=== PATIENT | male | born 1975 | race Caucasian/White ===

== ENCOUNTER 2016-10-09 21:12 | Emergency (ER) | payer OTHER ==
[2016-10-09 22:12] VITALS: TEMP 98.3
[2016-10-09] MEDS ORDERED: SODIUM CHLORIDE 0.9% 500 ML IV STA (23:39)
--- NOTE | 2016-10-09 23:46 | ED ---
General Adult HPI - General Chief complaint: ENT Stated complaint: Sinus Problems/Dizziness Time Seen by Provider: 10/09/16 23:23 Source: patient, RN notes reviewed Mode of arrival: ambulatory - History of Present Illness Initial comments: This is a 41-year-old male who presents to the [facility] today for complaints of left ear pain. Patient states he's had an earache for 2 months and has noticed some drainage over the last couple of weeks. Patient denies any fever/chills. Patient does admit to some hearing loss in left ear. Patient also states he has a history of pulmonary embolism. Patient states this was diagnosed over a year ago. Patient states he was on blood thinners for one month but lost his insurance and quit taking his blood thinners. Patient states he never followed up for this. Patient states he's had intermittent sharp chest pain for the past 6 months. Patient denies any chest pain in the EC. Patient denies any shortness of breath. Patient states there is no correlation to physical activity and the chest pain occurs randomly. Patient denies any palpitations. Patient is also complaining of a lump that he can feel to the left side of his back. Patient states this has also been present for 6 months to a year. Patient has not noticed any swelling or redness to this area. Patient denies any recent fever, chills, shortness breath, abdominal pain, nausea/vomiting/ diarrhea, back pain, numbness, tingling, hematuria, headache, or visual changes , or any other complaints. - Related Data Previous Rx's Medication Instructions Recorded Ofloxacin [Floxin 0.3% Otic Soln] 10 drops LEFT EAR BID 14 Days 10/10/16 Allergies Allergy/AdvReac Type Severity Reaction Status Date / Time No Known Allergies Allergy Verified 10/09/16 23:29 Review of Systems ROS Statement: Those systems with pertinent positive or pertinent negative responses have been documented in the HPI. ROS Other: All systems not noted in ROS Statement are negative. Past Medical History Past Medical History: Asthma, Pulmonary Embolus (PE) History of Any Multi-Drug Resistant Organisms: None Reported Past Surgical History: Ear Surgery, Tonsillectomy Past Anesthesia/Blood Transfusion Reactions: No Reported Reaction Past Psychological History: No Psychological Hx Reported Smoking Status: Former smoker Past Alcohol Use History: None Reported Past Drug Use History: None Reported - Past Family History Father Family Medical History: Diabetes Mellitus, Hypertension Mother Family Medical History: Diabetes Mellitus, Hypertension General Exam - General Exam Comments Initial Comments: General: The patient is awake and alert, in no distress, and does not appear acutely ill. Eye: Pupils are equal, round and reactive to light, extra-ocular movements are intact. No nystagmus. There is normal conjunctiva bilaterally. No signs of icterus. Ears: Left: Tympanic membrane with perforation noted. No drainage noted. Tympanic membrane is slightly erythematous. Right: TMs pink and pearly with intact cone of light. Normal external ear canals Nose: Nasal turbinates pink and moist Mouth and throat: There are moist mucous membranes and no oral lesions. Neck: The neck is supple, there is no tenderness or JVD. Cardiovascular: There is no reproducible chest pain. There is a regular rate and rhythm. No murmur, rub or gallop is appreciated. Respiratory: Lungs are clear to auscultation, respirations are non-labored, breath sounds are equal. No wheezes, stridor, rales, or rhonchi. Gastrointestinal: Soft, non-distended, non-tender abdomen without masses or organomegaly noted. There is no rebound or guarding present. No CVA tenderness. Bowel sounds are unremarkable. Musculoskeletal: There is an approximately 1 cm palpable lump to the patient's lateral left-sided back. There is no erythema, tenderness, swelling or ecchymosis. Normal ROM, no tenderness. Strength 5/5. Sensation intact. Radial pulses equal bilaterally 2+. Neurological: A&O x 3. CN II-XII intact, There are no obvious motor or sensory deficits. Coordination appears grossly intact. Speech is normal. Skin: Skin is warm and dry and no rashes or lesions are noted. Psychiatric: Cooperative, appropriate mood & affect, normal judgment. Course Vital Signs 10/09/16 22:08 Temperature 98.3 F Pulse Rate 61 Respiratory 18 Rate Blood Pressure 144/84 O2 Sat by Pulse 99 Oximetry EKG Findings - EKG Comments: EKG Findings:: An EKG was done at 2352 showing Sinus bradycardia with a ventricular rate of 54, NM interval of 138, QRS duration of 98 QTc of 403. No acute ST changes. There was some concern for lead placement with this EKG so a repeat EKG was done. A repeat EKG was done at 019 showing sinus bradycardia. Ventricular rate of 53, NM interval 148, QRS duration of 96, QTc of 412. No acute ST changes. Medical Decision Making - Medical Decision Making This is a 41-year-old male who presents with multiple complaints. On physical exam Left: Tympanic membrane with perforation noted. No drainage noted. Tympanic membrane is slightly erythematous. Lungs are clear to auscultation bilaterally. Patient also complains of intermittent chest pain and has history of pulmonary embolism. Chest x-ray was done and reviewed showing: No acute disease. Report by Dr. Rankin. Basic labs were drawn and came back negative. An EKG was done at 2352 showing Sinus bradycardia with a ventricular rate of 54, NM interval of 138, QRS duration of 98 QTc of 403. No acute ST changes. There was some concern for lead placement with this EKG so a repeat EKG was done. A repeat EKG was done at 019 showing sinus bradycardia. Ventricular rate of 53, NM interval 148, QRS duration of 96, QTc of 412. No acute ST changes. I discussed results of labs, imaging and EKG with patient. I discussed that patient should follow-up with his primary care physician regarding these issues. Patient denies any history of clotting disorders or any specific reason that was determined to cause his PE in 2015. Due to patient's perforated left tympanic membrane patient will be placed on Floxin otic drops. I discussed Tylenol and Motrin for any pain. I discussed follow-up with ENT in 1-2 days regarding this problem. I discussed that patient should follow-up with his primary care provider regarding the lump to the left lateral side of his back. I discussed that there is no sign of infection or need for further investigation acutely. I discussed return parameters. All questions were answered. Discussed that patient should follow up with PCP in one to 2 days or return to the [facility] for any worsening symptoms or for any further concerns. Patient was receptive to this plan and patient will be discharged home. I discussed this case with attending physician Dr. Roche who agrees the plan as stated above. - Lab Data Result diagrams: 10/10/16 00:05 10/10/16 00:05 Lab Results 10/10/16 10/10/16 10/10/16 Range/Units 00:05 00:05 00:05 WBC 7.3 (3.8-10.6) k/uL RBC 5.59 (4.30-5.90) m/uL Hgb 15.4 (13.0-17.5) gm/dL Hct 45.7 (39.0-53.0) % MCV 81.8 (80.0-100.0) fL MCH 27.5 (25.0-35.0) pg MCHC 33.7 (31.0-37.0) g/dL RDW 14.1 (11.5-15.5) % Plt Count 161 (150-450) k/uL Neutrophils % 62 % Lymphocytes % 26 % Monocytes % 7 % Eosinophils % 2 % Basophils % 1 % Neutrophils # 4.6 (1.3-7.7) k/uL Lymphocytes # 1.9 (1.0-4.8) k/uL Monocytes # 0.5 (0-1.0) k/uL Eosinophils # 0.2 (0-0.7) k/uL Basophils # 0.1 (0-0.2) k/uL PT (9.0-12.0) sec INR (<1.1) APTT (22.0-30.0) sec D-Dimer (<0.60) mg/L FEU Sodium 142 (137-145) mmol/L Potassium 3.9 (3.5-5.1) mmol/L Chloride 104 (98-107) mmol/L Carbon Dioxide 26 (22-30) mmol/L Anion Gap 12 mmol/L BUN 15 (9-20) mg/dL Creatinine 0.90 (0.66-1.25) mg/dL Est GFR (MDRD) Af Amer >60 (>60 ml/min/1.73 sqM) Est GFR (MDRD) Non-Af >60 (>60 ml/min/1.73 sqM) Glucose 91 (74-99) mg/dL Calcium 9.6 (8.4-10.2) mg/dL Magnesium 1.8 (1.6-2.3) mg/dL Total Bilirubin 0.8 (0.2-1.3) mg/dL AST 20 (17-59) U/L ALT 39 (21-72) U/L Alkaline Phosphatase 48 (38-126) U/L Total Creatine Kinase 93 (55-170) U/L CK-MB (CK-2) 0.7 (0.0-2.4) ng/mL CK-MB (CK-2) Rel Index 0.8 Troponin I <0.012 (0.000-0.034) ng/mL Total Protein 7.0 (6.3-8.2) g/dL Albumin 4.3 (3.5-5.0) g/dL 10/10/16 Range/Units 00:05 WBC (3.8-10.6) k/uL RBC (4.30-5.90) m/uL Hgb (13.0-17.5) gm/dL Hct (39.0-53.0) % MCV (80.0-100.0) fL MCH (25.0-35.0) pg MCHC (31.0-37.0) g/dL RDW (11.5-15.5) % Plt Count (150-450) k/uL Neutrophils % % Lymphocytes % % Monocytes % % Eosinophils % % Basophils % % Neutrophils # (1.3-7.7) k/uL Lymphocytes # (1.0-4.8) k/uL Monocytes # (0-1.0) k/uL Eosinophils # (0-0.7) k/uL Basophils # (0-0.2) k/uL PT 10.8 (9.0-12.0) sec INR 1.1 (<1.1) APTT 24.9 (22.0-30.0) sec D-Dimer 0.36 (<0.60) mg/L FEU Sodium (137-145) mmol/L Potassium (3.5-5.1) mmol/L Chloride (98-107) mmol/L Carbon Dioxide (22-30) mmol/L Anion Gap mmol/L BUN (9-20) mg/dL Creatinine (0.66-1.25) mg/dL Est GFR (MDRD) Af Amer (>60 ml/min/1.73 sqM) Est GFR (MDRD) Non-Af (>60 ml/min/1.73 sqM) Glucose (74-99) mg/dL Calcium (8.4-10.2) mg/dL Magnesium (1.6-2.3) mg/dL Total Bilirubin (0.2-1.3) mg/dL AST (17-59) U/L ALT (21-72) U/L Alkaline Phosphatase (38-126) U/L Total Creatine Kinase (55-170) U/L CK-MB (CK-2) (0.0-2.4) ng/mL CK-MB (CK-2) Rel Index Troponin I (0.000-0.034) ng/mL Total Protein (6.3-8.2) g/dL Albumin (3.5-5.0) g/dL Disposition Clinical Impression: Perforated tympanic membrane Disposition: HOME SELF-CARE Condition: Good Instructions: Ruptured Eardrum (ED) Additional Instructions: Please use antibiotic eardrops as prescribed. Please use Tylenol and Motrin for any pain. Please follow-up with the primary care physician in the next 1-2 days or return to the [facility] for any worsening symptoms or for any further concerns. Prescriptions: Ofloxacin [Floxin 0.3% Otic Soln] 10 drops LEFT EAR BID 14 Days Referrals: None,Stated [Primary Care Provider] - 1-2 days Sean Johnson MD [STAFF PHYSICIAN] - 1-2 days Mauro Newell III, MD [STAFF PHYSICIAN] - 1-2 days Bertha James MD [STAFF PHYSICIAN] - 1-2 days Niranjan Thompson DO [Doctor of Osteopathic Medicine] - 1-2 days Time of Disposition: 01:13
--- NOTE | 2016-10-09 23:53 | XR ---
EXAM: XR Chest, 2 Views. CLINICAL HISTORY: Reason: Pain TECHNIQUE: Frontal and lateral views of the chest. COMPARISON: Chest radiograph on 01/27/2015 FINDINGS: Hardware: None. Lungs/pleura: Normal. No focal consolidation. No pleural effusion or pneumothorax. Heart/mediastinum: Normal. No cardiomegaly. Soft tissues: Unremarkable. Bones: No acute fracture. Upper abdomen: Normal. IMPRESSION: No acute disease.
[2016-10-10 00:20] LABS: Basophils # (A) 0.1 k/uL (0-0.2); Basophils % (A) 1 %; CH 27.8; Eosinophils # (A) 0.2 k/uL (0-0.7); Eosinophils % (A) 2 %; HCT 45.7 % (39.0-53.0); HDW 2.99; HGB 15.4 gm/dL (13.0-17.5); Luc # (Auto) 0.13; Luc % (Auto) 2; Lymphocytes # (A) 1.9 k/uL (1.0-4.8); Lymphocytes % (A) 26 %; MCH 27.5 pg (25.0-35.0); MCHC 33.7 g/dL (31.0-37.0); MCV 81.8 fL (80.0-100.0); Mean Platelet Volume 8.1; Monocytes # (A) 0.5 k/uL (0-1.0); Monocytes % (A) 7 %; Neutrophils # (A) 4.6 k/uL (1.3-7.7); Neutrophils % (A) 62 %; RBC 5.59 m/uL (4.30-5.90); RDW 14.1 % (11.5-15.5); WBC 7.3 k/uL (3.8-10.6); WBC (Perox) 7.18
[2016-10-10 00:28] LABS: ALT 39 U/L (21-72); AST 20 U/L (17-59); Alkaline Phosphatase 48 U/L (38-126); Anion Gap 12 mmol/L; Blood Urea Nitrogen 15 mg/dL (9-20); Calcium 9.6 mg/dL (8.4-10.2); Carbon Dioxide 26 mmol/L (22-30); Chloride 104 mmol/L (98-107); Glucose 91 mg/dL (74-99); Magnesium 1.8 mg/dL (1.6-2.3); Non-African American GFR(MDRD) >60 (>60 ml/min/1.73 sqM); Potassium 3.9 mmol/L (3.5-5.1); Sodium 142 mmol/L (137-145); Total Bilirubin 0.8 mg/dL (0.2-1.3)
[2016-10-10 00:35] LABS: INR 1.1 (<1.1); Partial Thromboplastin Time 24.9 sec (22.0-30.0); Prothrombin Time 10.8 sec (9.0-12.0)
[2016-10-10 00:37] LABS: Creatine Kinase 93 U/L (55-170)
[2016-10-10 00:50] LABS: Creatine Kinase MB 0.7 ng/mL (0.0-2.4); Troponin I <0.012 ng/mL (0.000-0.034)
[2016-10-10 01:25] VITALS: BP 127/67; PULSE 85; RESP 16
== END 2016-10-10 01:25 | disposition home or self-care (01) ==
LOC: EC 21:12
DX: S09.22XA Traumatic rupture of left ear drum, initial encounter (principal); R07.9 Chest pain, unspecified; H91.92 Unspecified hearing loss, left ear; Z86.711 Personal history of pulmonary embolism; Z87.891 Personal history of nicotine dependence; X58.XXXA Exposure to other specified factors, initial encounter
CPT/HCPCS: 36415; 71020; 80053; 82550; 82553; 83735; 84484; 85025; 85379; 85610; 85730; 93005; 99284

== ENCOUNTER 2017-01-05 17:51 | Emergency (ER) | payer OTHER ==
[2017-01-05 18:01] VITALS: BP 128/77; PULSE 87; RESP 20; TEMP 97.1
[2017-01-05] MEDS ORDERED: ORPHENADRINE 30 MG/ML 2 ML VIAL IM STA (18:11)
[2017-01-05] MEDS ORDERED: KETOROLAC 60 MG/2 ML VIAL IM STA (18:11)
--- NOTE | 2017-01-05 18:12 | ED ---
Back Pain HPI - General Chief Complaint: Back Pain/Injury Stated Complaint: lower back pain/left leg pain Time Seen by Provider: 01/05/17 18:03 Source: patient, RN notes reviewed, old records reviewed Limitations: physical limitation - History of Present Illness Initial Comments: This is a 41-year-old male presenting to the emergency Department chief complaint of lower back pain is reading on his left leg. Patient reports that this is Garrett for the past 3 days. Patient denies any difficulty with urination and bowel movements. Denies any saddle anesthesias. Patient states that the pain seems to radiate from the top of the buttock all the way down his leg. He states it's worse with full flexion and extension of the leg and hip. Patient has been been taking Motrin with little relief. Denies any previous injuries to cause this. States that he has a history of degenerative disc disease but does not know exactly what causes her what disc are worse.Patient denies any recent fever, chills, shortness of breath, chest pain, abdominal pain, nausea vomiting, numbness or tingling, dysuria or hematuria, constipation or diarrhea, headaches or visual changes, or any other current symptoms - Related Data Previous Rx's Medication Instructions Recorded Acetaminophen-Codeine 300-30mg 1 tab PO Q6H PRN #12 tablet 01/05/17 [Tylenol #3] Cyclobenzaprine [Flexeril] 10 mg PO TID #12 tab 01/05/17 Dexamethasone 0.75 mg PO DAILY #12 tab 01/05/17 Allergies Allergy/AdvReac Type Severity Reaction Status Date / Time No Known Allergies Allergy Verified 01/05/17 18:09 Review of Systems ROS Statement: Those systems with pertinent positive or pertinent negative responses have been documented in the HPI. ROS Other: All systems not noted in ROS Statement are negative. Past Medical History Past Medical History: Asthma, Pulmonary Embolus (PE) Additional Past Medical History / Comment(s): back pain History of Any Multi-Drug Resistant Organisms: None Reported Past Surgical History: Ear Surgery, Tonsillectomy Additional Past Surgical History / Comment(s): ear tubes Past Anesthesia/Blood Transfusion Reactions: No Reported Reaction Past Psychological History: No Psychological Hx Reported Smoking Status: Current every day smoker Past Alcohol Use History: None Reported Past Drug Use History: None Reported - Past Family History Father Family Medical History: Diabetes Mellitus, Hypertension Mother Family Medical History: Diabetes Mellitus, Hypertension General Exam - General Exam Comments Initial Comments: 41-year-old male. No distress. Limitations: physical limitation General appearance: alert, in no apparent distress Head exam: Present: atraumatic, normocephalic, normal inspection Eye exam: Present: normal appearance, PERRL, EOMI. Absent: scleral icterus, conjunctival injection, periorbital swelling ENT exam: Present: normal exam, mucous membranes moist Neck exam: Present: normal inspection. Absent: tenderness, meningismus, lymphadenopathy Respiratory exam: Present: normal lung sounds bilaterally. Absent: respiratory distress, wheezes, rales, rhonchi, stridor Cardiovascular Exam: Present: regular rate, normal rhythm, normal heart sounds. Absent: systolic murmur, diastolic murmur, rubs, gallop, clicks GI/Abdominal exam: Present: soft, normal bowel sounds. Absent: distended, tenderness, guarding, rebound, rigid Extremities exam: Present: normal inspection, full ROM, normal capillary refill. Absent: tenderness, pedal edema, joint swelling, calf tenderness Back exam: Present: normal inspection, other (Left paraspinal lumbar tenderness. Patient has positive straight leg test.) Neurological exam: Present: alert, oriented X3, CN II-XII intact Psychiatric exam: Present: normal affect, normal mood Skin exam: Present: warm, dry, intact, normal color. Absent: rash Course Vital Signs 01/05/17 17:59 Temperature 97.1 F L Pulse Rate 87 Respiratory 20 Rate Blood Pressure 128/77 O2 Sat by Pulse 99 Oximetry Medical Decision Making - Medical Decision Making This is a 41-year-old male presenting to the emergency Department chief complaint of lower back pain is reading on his left leg. Patient reports that this is occuring for the past 3 days. Patient denies any difficulty with urination and bowel movements. Denies any saddle anesthesias. Patient states that the pain seems to radiate from the top of the buttock all the way down his leg. He states it's worse with full flexion and extension of the leg and hip. Patient has been been taking Motrin with little relief. Denies any previous injuries to cause this. States that he has a history of degenerative disc disease but does not know exactly what causes her what disc are worse. Patient was given lumbar spine x-rays. Negative for any acute process. Patient given IM Toradol and Norflex. Patient reports that he is feeling better at this time. Patient be discharged with Tylenol codeine, Flexeril, and steroid pack. Discussed following up with a orthopedic or primary care physician. Patient agrees. Patient has history plan will comply. Return parameters were discussed. - Radiology Data Radiology results: report reviewed Disposition Clinical Impression: Left sciatic nerve pain Disposition: HOME SELF-CARE Condition: Good Instructions: Sciatica (ED), Acute Low Back Pain (ED), Lower Back Exercises (ED ) Additional Instructions: Patient advised taking medication as prescribed. Patient advised also apply heat and ice to the lower back. Also recommending massaging the area. Return to emergency department if any alarming signs or symptoms occur. Prescriptions: Acetaminophen-Codeine 300-30mg [Tylenol #3] 1 tab PO Q6H PRN #12 tablet PRN Reason: Pain Cyclobenzaprine [Flexeril] 10 mg PO TID #12 tab Dexamethasone 0.75 mg PO DAILY #12 tab Referrals: None,Stated [Primary Care Provider] - 1-2 days Bertha James MD [STAFF PHYSICIAN] - 1-2 days Time of Disposition: 18:49
--- NOTE | 2017-01-05 18:47 | XR ---
EXAMINATION TYPE: XR lumbar spine 2 or 3V DATE OF EXAM: 01/05/2017 CLINICAL HISTORY: pain TECHNIQUE: Three views of the lumbar spine are submitted. COMPARISON: None. FINDINGS: There are 5 lumbar type vertebral bodies identified. The lumbar spine shows satisfactory alignment w ithout evidence of acute fracture or dislocation. Vertebral body heights are within normal limits. Disc spaces are within normal limits. The overlying soft tissue appears unremarkable. IMPRESSION: No acute fracture or dislocation is seen in the lumbar spine. ICD 10 NO FRACTURE, INITIAL EVALUATION
== END 2017-01-05 19:05 | disposition home or self-care (01) ==
LOC: EC 17:51
DX: M54.32 Sciatica, left side (principal); F17.200 Nicotine dependence, unspecified, uncomplicated
CPT/HCPCS: 99283; 96372 ×2; 72100; J2360; J1885

== ENCOUNTER → 2019-06-05 | Outpatient (CLI) | payer OTHER ==
--- NOTE | 2019-06-05 20:27 | MR ---
EXAMINATION TYPE: MR lumbar spine wo con DATE OF EXAM: 06/05/2019 COMPARISON: None HISTORY: Low back pain CONTRAST: 0 mL intravenous Gadavist. TECHNIQUE: Multiplanar, multisequence images of the lumbar spine were acquired. FINDINGS: L5-S1: Broad-based disc bulge is present with mild intrathecal sac compression. This likely has some compression of the exiting nerve roots. Correlate with S1 radicular symptoms. L4-L5: Broad-based disc bulge is present with anterior thecal sac flattening. Increased signals in th e posterior disc space compatible with an annular tear. L3-L4: No significant disc bulge or disc herniation. No spinal canal stenosis. No foraminal stenosi s. There is some facet hypertrophy with minimal posterior lateral thecal sac compression. L2-L3: No significant disc bulge or disc herniation. No spinal canal stenosis. No foraminal stenosi s. . L1-L2: No significant disc bulge or disc herniation. No spinal canal stenosis. No foraminal stenosi s. . T12-L1: No significant disc bulge or disc herniation. No spinal canal stenosis. No foraminal stenos is. . IMPRESSION: 1. Annular tear L4-5. 2. Mild disc bulging at L4-5. 3. Disc bulging effaces the thecal sac at L5-S1, correlate with bilateral S1 radicular symptoms.
== END | disposition home or self-care (01) ==
LOC: RADMRIMAIN 11:48
PROVIDERS: ATTEND Internal Medicine
DX: M51.26 Other intervertebral disc displacement, lumbar region (principal)
CPT/HCPCS: 72148

== ENCOUNTER → 2020-04-02 | Outpatient (CLI) | payer OTHER ==
--- NOTE | 2020-04-02 17:49 | MR ---
EXAMINATION TYPE: MR cervical spine wo con DATE OF EXAM: 04/02/2020 COMPARISON: None HISTORY: Neck pain, RUE radiculopathy, headaches TECHNIQUE: Multiplanar, multisequence images of the cervical spine were acquired. C2-C3: No evidence for degenerative disc disease. No disc bulge/herniation or protrusion. No Canal stenosis. Foramina are patent bilaterally. C3-C4: No evidence for degenerative disc disease. No disc bulge/herniation or protrusion. No Canal stenosis. Foramina show mild encroachment due to uncovertebral joint hypertrophy. C4-C5: No evidence for degenerative disc disease. No disc bulge/herniation or protrusion. No Canal stenosis. Foramina are remarkable for mild encroachment present on the left due to uncovertebral marisela nt hypertrophy and facet arthropathy. C5-C6: No evidence for degenerative disc disease. No disc bulge/herniation or protrusion. No Canal stenosis. Foramina show some uncovertebral joint hypertrophy and facet arthropathy noted on the left causing some foraminal encroachment. C6-C7: No evidence for degenerative disc disease. No disc bulge/herniation or protrusion. No Canal stenosis. Foramina are patent bilaterally. C7-T1: No evidence for degenerative disc disease. No disc bulge/herniation or protrusion. No Canal stenosis. Foramina are patent bilaterally. Cervical segments are intact. There is normal alignment. Cervical spinal cord is of normal signal. Craniovertebral junction relationships are within normal limits. Cervical vertebral bodies show pre served height and alignment. Increased signal at the anterior aspect of the C2 vertebral body may be due to reactive marrow signal change. Possible mucus retention cyst present in the maxillary sinus on the left IMPRESSION: There is some mild multilevel foraminal encroachment, motion is present on exam. No canal stenosis or evident sizable disc herniation. Additional findings above.
== END | disposition home or self-care (01) ==
LOC: RADMRIMAIN 15:56
PROVIDERS: ATTEND Internal Medicine
DX: M54.2 Cervicalgia (principal); M54.12 Radiculopathy, cervical region
CPT/HCPCS: 72141

== ENCOUNTER 2023-01-10 13:55 | Emergency (ER) | payer OTHER ==
--- NOTE | 2023-01-10 15:03 | XR ---
Right ankle. As you: Pain following trauma. COMPARISON: None. TECHNIQUE: 3 views of the right ankle were obtained FINDINGS: There is marked soft tissue swelling over the lateral malleolus. There is a tiny avulsion fracture fr om the distal tip of the fibula. The ankle mortise is intact. No other fractures or dislocations are identified. IMPRESSION: Tiny avulsion fracture from the distal aspect of the fibula with marked soft tissue swelling over the lateral malleolus.
[2023-01-10 15:35] VITALS: BP 109/72; PULSE 56; RESP 15; TEMP 98
--- NOTE | 2023-01-10 15:45 | ED ---
Lower Extremity Injury HPI - General Chief Complaint: Extremity Injury, Lower Stated Complaint: sprain ankle Time Seen by Provider: 01/10/23 14:10 Source: patient Mode of arrival: ambulatory - History of Present Illness Initial Comments: 47-year-old male presents to the emergency department with complaint of right ankle pain. He was playing basketball yesterday evening when he went up for a shot. States that when he came back down he rolled his ankle outward and heard a pop. He has been able to ambulatory however it is painful. He does have significant swelling to the lateral aspect of his ankle. He denies any hip or knee pain. No previous injuries to that ankle before. He is taking Motrin and Tylenol at home for pain which has been adequate. No other alleviating, force variation equipment tender modifying factors - Related Data Previous Rx's Medication Instructions Recorded Acetaminophen-Codeine 300-30mg 1 tab PO Q6H PRN #12 tablet 01/05/17 [Tylenol #3] Cyclobenzaprine [Flexeril] 10 mg PO TID #12 tab 01/05/17 dexAMETHasone [Decadron] 0.75 mg PO DAILY #12 tab 01/05/17 Allergies Allergy/AdvReac Type Severity Reaction Status Date / Time No Known Allergies Allergy Verified 01/10/23 14:09 Review of Systems ROS Statement: Those systems with pertinent positive or pertinent negative responses have been documented in the HPI. ROS Other: All systems not noted in ROS Statement are negative. Past Medical History Past Medical History: Asthma, Pulmonary Embolus (PE) Additional Past Medical History / Comment(s): back pain History of Any Multi-Drug Resistant Organisms: None Reported Past Surgical History: Ear Surgery, Tonsillectomy Additional Past Surgical History / Comment(s): ear tubes Past Anesthesia/Blood Transfusion Reactions: No Reported Reaction Past Psychological History: No Psychological Hx Reported Smoking Status: Current every day smoker Past Alcohol Use History: None Reported Past Drug Use History: Marijuana - Past Family History Father Family Medical History: Diabetes Mellitus, Hypertension Mother Family Medical History: Diabetes Mellitus, Hypertension General Exam General appearance: alert, in no apparent distress Head exam: Present: atraumatic, normocephalic, normal inspection Extremities exam: Present: joint swelling (right ankle. lateral malleolus tenderness. no obviously deformity. 2+ DP and PT pulses) Course Vital Signs 01/10/23 01/10/23 14:06 15:33 Temperature 99.6 F 98 F Pulse Rate 69 56 L Respiratory 18 15 Rate Blood Pressure 124/88 109/72 O2 Sat by Pulse 97 96 Oximetry Procedures - Orthopedic Splinting/Casting Injury #1 Side: right Lower Extremity Injury Location: short leg Lower Extremity Immobilizer: posterior splint Medical Decision Making - Medical Decision Making Was pt. sent in by a medical professional or institution (, HOMER, [employer], urgent care, hospital, or jail...) When possible be specific @ -No Did you speak to anyone other than the patient for history (EMS, parent, family, police, friend...)? What history was obtained from this source @ -No Did you review nursing and triage notes (agree or disagree)? Why? @ -I reviewed and agree with nursing and triage notes Were old charts reviewed (outside hosp., previous admission, EMS record, old EKG, old radiological studies, urgent care reports/EKG's, jail records)? Report findings @ -No old charts were reviewed Differential Diagnosis (chest pain, altered mental status, abdominal pain women, abdominal pain men, vaginal bleeding, weakness, fever, dyspnea, syncope, headache, dizziness, GI bleed, back pain, seizure, CVA, palpatations, mental health, musculoskeletal)? @ -fracture, strain, sprain EKG interpreted by me (3pts min.). @ -Not done X-rays interpreted by me (1pt min.). @ -yes, possible avulsion injury CT interpreted by me (1pt min.). @ -None done U/S interpreted by me (1pt. min.). @ -None done What testing was considered but not performed or refused? (CT, X-rays, U/S, labs)? Why? @ -None What meds were considered but not given or refused? Why? @ -None Did you discuss the management of the patient with other professionals (professionals i.e. HOMER Gabriel, [employer], lab, RT, psych nurse, social work msw, panel machine operator, teacher, nuclear medicine officer, egg caser)? Give summary @ -No Was smoking cessation discussed for >3mins.? @ -No Was critical care preformed (if so, how long)? @ -No Were there social determinants of health that impacted care today? How? (Homelessness, low income, unemployed, alcoholism, drug addiction, transportation, low edu. Level, literacy, decrease access to med. care, prison, rehab)? @ -No Was there de-escalation of care discussed even if they declined (Discuss DNR or withdrawal of care, Hospice)? DNR status @ -No What co-morbidities impacted this encounter? (DM, HTN, Smoking, COPD, CAD, Cancer, CVA, ARF, Chemo, Hep., AIDS, mental health diagnosis, sleep apnea, morbid obesity)? @ -None Was patient admitted / discharged? Hospital course, mention meds given and route, prescriptions, significant lab abnormalities, going to OR and other pertinent info. @ -Upon arrival patient is placed into room 33. Thorough history and physical exam was performed. Patient does have significant swelling. 2+ DP and PT pulses. He is sent over for an x-ray which demonstrates possible avulsion fracture of the right fibula. Patient is placed in a posterior splint. Instructed to follow-up with orthopedic office. Most likely will be placed in a boot. He is already taking Motrin and Tylenol as needed for pain control. Return for any new or worsening symptoms. Patient was agreeable as planned was discharged in stable condition Undiagnosed new problem with uncertain prognosis? @ -No Drug Therapy requiring intensive monitoring for toxicity (Heparin, Nitro, Insulin, Cardizem)? @ -No Were any procedures done? @ -yes, posterior splint placement Diagnosis/symptom? @ -acute avulsion fracture right tibia Acute, or Chronic, or Acute on Chronic? @ -acute Uncomplicated (without systemic symptoms) or Complicated (systemic symptoms)? @ -uncomplicated Side effects of treatment? @ -No Exacerbation, Progression, or Severe Exacerbation? @ -No Poses a threat to life or bodily function? How? (Chest pain, [place], [place], pneumonia, PE, COPD, DKA, ARF, appy, cholecystitis, CVA, Diverticulitis, Homicidal, Suicidal, threat to staff... and all critical care pts) @ -No Disposition Clinical Impression: Closed fibular fracture Disposition: HOME SELF-CARE Condition: Stable Instructions (If sedation given, give patient instructions): Ankle Fracture (ED) Additional Instructions: Rest, ice and elevate the extremity. Use the crutches. Do not place weight on the leg. Call the orthopedic office in the morning and tell them that you are in a splint. Alternate taking Motrin and Tylenol every 4 hours. Return for any new or worsening symptoms Is patient prescribed a controlled substance at d/c from ED?: No Referrals: None,Stated [Primary Care Provider] - 1-2 days Canelo Nettles DO [Doctor of Osteopathic Medicine] - 1-2 days Time of Disposition: 15:42
== END 2023-01-10 15:58 | disposition home or self-care (01) ==
LOC: EC 13:55
DX: S82.401A Unspecified fracture of shaft of right fibula, initial encounter for closed fracture (principal); J45.909 Unspecified asthma, uncomplicated; F12.90 Cannabis use, unspecified, uncomplicated; F17.200 Nicotine dependence, unspecified, uncomplicated; X50.1XXA Overexertion from prolonged static or awkward postures, initial encounter; Y93.67 Activity, basketball
CPT/HCPCS: 29515; 99283